=== PATIENT | female | born 1985 | race Two or more races ===

== ENCOUNTER 2023-01-22 16:48 | Emergency (ER) | payer BC ==
[~2023-01-22] VITALS: Ht 165.1 cm; Wt 62.1 kg
== END 2023-01-22 20:06 | disposition home or self-care (01) ==
LOC: ER 16:48
DX: N93.8 Other specified abnormal uterine and vaginal bleeding (principal); N83.292 Other ovarian cyst, left side; N83.291 Other ovarian cyst, right side